=== PATIENT | female | born 1980 | race Caucasian/White ===

== ENCOUNTER 2022-03-23 10:40 | Emergency (ER) | payer BC, SELFPAY ==
[2022-03-23] VITALS (27 sets, daily range): BP systolic 116–136; BP diastolic 58–78; PULSE 88–106; RESP 12–38; TEMP 36.9; O2SAT 92–100; BMI 21.9
--- NOTE | 2022-03-23 14:23 | DI.RAD.S_ITS ---
PROCEDURE: XR CHEST 1V INDICATIONS: chest pain TECHNIQUE: One view of the chest was acquired. COMPARISON: None. FINDINGS: Surgical changes and devices: None. Overlying EKG wires. Lungs and pleura: Lungs are clear. No pleural effusions or pneumothorax. Mediastinum: Mediastinal contours appear normal. Heart size is normal. Bones and chest wall: No suspicious bony lesions. Overlying soft tissues appear unremarkable. IMPRESSION: No evidence of an acute cardiopulmonary abnormality. Dictated by: Melvin Murry D.O. on 03/23/2022 at 13:39 Approved by: Melvin Murry D.O. on 03/23/2022 at 13:40
[2022-03-23 14:31] LABS: Add Manual Diff / Slide Review NO; Basophils Absolute Auto 0 /uL (0-100); Basophils Percent Auto 0.8 % (0-2); Eosinophils Absolute Auto 100 /uL (0-450); Eosinophils Percent Auto 1.9 % (2-4); Hematocrit 36.6 % (36-46); Hemoglobin 12.1 g/dL (12.0-16.0); Lymphocytes Absolute Auto 900 /uL (1100-4500); Lymphocytes Percent Auto 20.4 % (25-40); Mean Corpuscular HGB Conc 33.1 % (30-36); Mean Corpuscular Hemoglobin 27.8 PG (26-34); Monocytes Absolute Auto 500 /uL (0-900); Monocytes Percent Auto 12.4 % (3-14); Neutrophils Absolute Auto 2800 /uL (1500-7000); Neutrophils Percent Auto 64.5 % (50-75); Platelet Count 186 X10^3/uL (150-400); Red Blood Cell Count 4.35 X10^6/uL (4.0-5.2); Red Cell Distribution Width 11.6 % (11.6-14.8); White Blood Cell Count 4.4 X10^3/uL (4.5-11.0)
[2022-03-23 14:48] LABS: Alanine Aminotransferase 25 IU/L (<35); Albumin 3.4 g/dL (3.5-5.0); Albumin Globulin Ratio 1.3 (1.0-2.8); Alkaline Phosphatase 70 U/L (38-126); Aspartate Aminotransferase 27 IU/L (14-36); BUN Creatinine Ratio 20.7 (6-22); Bilirubin Total 0.3 mg/dL (0.2-1.3); Blood Urea Nitrogen 12 mg/dL (7-17); Calcium 7.7 mg/dL (8.4-10.2); Carbon Dioxide 21 mmol/L (22-32); Chloride 111 mmol/L (98-107); Creatine Kinase 44 U/L (30-135); Estimated Glomerular Filt Rate > 60 mL/min (>60); Globulin 2.7 g/dL (1.7-4.1); Glucose 107 mg/dL (70-100); HEMOLYSIS < 15 (0-50); Lipase 82 U/L (23-300); Magnesium 1.5 mg/dL (1.6-2.3); Potassium 3.5 mmol/L (3.4-5.1); Sodium 138 mmol/L (137-145); Total Protein 6.1 g/dL (6.3-8.2)
[2022-03-23 15:00] LABS: Troponin I < 0.012 ng/mL (0.01-0.034)
[2022-03-23 17:02] LABS: Thyroid Stimulating Hormone < 0.015 uIU/mL (0.47-4.68)
--- NOTE | 2022-03-23 17:10 | ED.ARRPALP ---
HPI - Arrhythmia/Palpitations <Leroy Bullock PA-C - Last Filed: 03/23/22 19:40> General Chief Complaint: Arrhythmia/Palpitations Stated Complaint: palpitations Time Seen by Provider: 03/23/22 16:16 Source: patient Mode of arrival: Ambulatory History of Present Illness HPI narrative: Patient is a 41-year-old female who presents to the emergency department for evaluation tachycardia and lightheadedness. Patient explains that she experienced a ?dizzy spell? while in [place] this morning and EMS reported that her heart rate was in the 130s. Patient states that she does have a history of Graves disease and explains that she usually feels that her medication needs to be adjusted when her heart rate becomes elevated. Since arriving to the emergency department patient states that she feels slightly fatigued but notes that her lightheadedness has improved somewhat. She denies any fever, chills, chest pain, cough, shortness of breath, nausea, vomiting, diarrhea, constipation, abdominal pain, dysuria, hematuria, syncope, confusion, diaphoresis, jaw pain, pain in the upper extremities, numbness and tingling in the extremities, or any other concerning symptoms. No further concerns were voiced at this time. Related Data Home Medications Medication Instructions Recorded Confirmed Multivitamins - 0 PO * UK DOSE/FREQUENCY ##0 07/16/08 (-S) Previous Rx's Medication Instructions Recorded propranolol 10 mg tablet 10 mg PO BID #10 tabs 03/23/22 Review of Systems <Leroy Bullock PA-C - Last Filed: 03/23/22 19:40> Constitutional Constitutional: Denies chills, Denies fatigue, Denies fever(s), Denies frequent falls, Denies lethargy and Denies weakness ENT Ears, Nose, Mouth, and Throat: Reports dizziness and Denies neck pain Cardiovascular Cardiovascular: Denies chest pain, Reports rapid heart rate, Denies irregular heart rhythm, Denies lightheadedness, Denies dyspnea, Denies dyspnea on exertion and Denies orthopnea Respiratory Respiratory: Denies dyspnea and Denies dyspnea on exertion Gastrointestinal Gastrointestinal: Denies abdominal pain, Denies change in bowel habits, Denies diarrhea, Denies nausea and Denies vomiting Genitourinary Genitourinary: Denies hematuria, Denies flank pain, Denies urinary incontinence and Denies urinary urgency Musculoskeletal Musculoskeletal: Denies back pain, Denies muscle weakness, Denies neck pain, Denies numbness and Denies tingling Integumentary/Breasts Skin/Breast: Denies pruritus, Denies erythema, Denies rash and Denies wounds Neurologic Neurologic: Reports dizziness, Denies frequent falls, Denies numbness, Denies tingling and Denies weakness Endocrine Endocrine: Denies fatigue Patient History <Leroy Bullock PA-C - Last Filed: 03/23/22 19:40> Social History Smoking Status: Never smoker Smoking Status: Never smoker Substance Use Type: does not use Exam <Leroy Bullock PA-C - Last Filed: 03/23/22 19:40> Narrative Exam Narrative: GENERAL: 41 year old patient appears stated age. Well-developed patient, in no acute distress. HEAD: Atraumatic. Normocephalic. EYES: Pupils equal round and reactive. Extraocular motions intact. No scleral icterus. No injection or drainage. ENT: Nose without bleeding, purulent drainage. Throat without erythema, tonsillar hypertrophy or exudate. Airway patent. NECK: Trachea midline. Non tender CARDIOVASCULAR: Tachycardic but regular rhythm without murmurs, gallops, or rubs. RESPIRATORY: Clear to auscultation. Breath sounds equal bilaterally. No wheezes, rales, or rhonchi. GASTROINTESTINAL: Abdomen soft, non-tender, nondistended. EXTREMITIES: No edema or joint tenderness. BACK: Nontender without deformity or crepitance. No flank tenderness. NEURO: AOx3. SKIN: No rash or erythema of visible areas Initial Vital Signs Initial Vital Signs: Vital Signs Pulse Rate 99 H 03/23/22 10:43 Pulse Oximetry 100 03/23/22 10:43 <Brijesh Lugo MD - Last Filed: 03/23/22 21:11> Initial Vital Signs Initial Vital Signs: Vital Signs Pulse Rate 99 H 03/23/22 10:43 Pulse Oximetry 100 03/23/22 10:43 Course <Leroy Bullock PA-C - Last Filed: 03/23/22 19:40> Orders Ordered: ED Orders 03/23/22 14:23 XR chest 1V Stat EKG-12 Lead Stat 03/23/22 17:26 Trop I [Troponin I] Stat Vital Signs Vital signs: Vital Signs - 8 hr 03/23/22 14:18 03/23/22 13:30 03/23/22 14:00 Pulse Rate 102 H 96 H Pulse Rate [Orthostatic Lying] 93 H Pulse Rate [Orthostatic Sitting] 96 H Pulse Rate [Orthostatic Standing] 105 H Respiratory Rate 25 H 15 Blood Pressure Blood Pressure [Orthostatic Lying] 133/60 Blood Pressure [Orthostatic Sitting] 129/78 Blood Pressure [Orthostatic Standing] 125/72 Pulse Oximetry 100 100 03/23/22 14:16 03/23/22 14:16 03/23/22 14:17 Pulse Rate 102 H Pulse Rate [Orthostatic Lying] Pulse Rate [Orthostatic Sitting] Pulse Rate [Orthostatic Standing] Respiratory Rate Blood Pressure 129/78 125/72 Blood Pressure [Orthostatic Lying] Blood Pressure [Orthostatic Sitting] Blood Pressure [Orthostatic Standing] Pulse Oximetry 100 03/23/22 14:17 03/23/22 14:30 03/23/22 14:56 Pulse Rate 99 H Pulse Rate [Orthostatic Lying] Pulse Rate [Orthostatic Sitting] Pulse Rate [Orthostatic Standing] Respiratory Rate 14 Blood Pressure 136/60 Blood Pressure [Orthostatic Lying] Blood Pressure [Orthostatic Sitting] Blood Pressure [Orthostatic Standing] Pulse Oximetry 100 100 03/23/22 14:56 03/23/22 15:00 03/23/22 15:00 Pulse Rate 95 H 93 H Pulse Rate [Orthostatic Lying] Pulse Rate [Orthostatic Sitting] Pulse Rate [Orthostatic Standing] Respiratory Rate 38 H 24 Blood Pressure 123/58 L Blood Pressure [Orthostatic Lying] Blood Pressure [Orthostatic Sitting] Blood Pressure [Orthostatic Standing] Pulse Oximetry 100 100 03/23/22 15:30 03/23/22 15:30 03/23/22 16:00 Pulse Rate 93 H Pulse Rate [Orthostatic Lying] Pulse Rate [Orthostatic Sitting] Pulse Rate [Orthostatic Standing] Respiratory Rate 25 H Blood Pressure 125/65 117/69 Blood Pressure [Orthostatic Lying] Blood Pressure [Orthostatic Sitting] Blood Pressure [Orthostatic Standing] Pulse Oximetry 100 03/23/22 16:00 03/23/22 16:30 03/23/22 16:30 Pulse Rate 90 92 H Pulse Rate [Orthostatic Lying] Pulse Rate [Orthostatic Sitting] Pulse Rate [Orthostatic Standing] Respiratory Rate 24 21 Blood Pressure 125/58 L Blood Pressure [Orthostatic Lying] Blood Pressure [Orthostatic Sitting] Blood Pressure [Orthostatic Standing] Pulse Oximetry 100 100 03/23/22 17:00 03/23/22 17:00 03/23/22 17:30 Pulse Rate 88 Pulse Rate [Orthostatic Lying] Pulse Rate [Orthostatic Sitting] Pulse Rate [Orthostatic Standing] Respiratory Rate 27 H Blood Pressure 116/63 116/61 Blood Pressure [Orthostatic Lying] Blood Pressure [Orthostatic Sitting] Blood Pressure [Orthostatic Standing] Pulse Oximetry 100 03/23/22 17:30 03/23/22 18:18 03/23/22 18:18 Pulse Rate 94 H 91 H Pulse Rate [Orthostatic Lying] Pulse Rate [Orthostatic Sitting] Pulse Rate [Orthostatic Standing] Respiratory Rate 28 H Blood Pressure 116/63 Blood Pressure [Orthostatic Lying] Blood Pressure [Orthostatic Sitting] Blood Pressure [Orthostatic Standing] Pulse Oximetry 100 100 <Brijesh Lguo MD - Last Filed: 03/23/22 21:11> Orders Ordered: ED Orders 03/23/22 14:23 XR chest 1V Stat EKG-12 Lead Stat 03/23/22 17:26 Trop I [Troponin I] Stat Vital Signs Vital signs: Vital Signs - 8 hr 03/23/22 14:18 03/23/22 13:30 03/23/22 14:00 Pulse Rate 102 H 96 H Pulse Rate [Orthostatic Lying] 93 H Pulse Rate [Orthostatic Sitting] 96 H Pulse Rate [Orthostatic Standing] 105 H Respiratory Rate 25 H 15 Blood Pressure Blood Pressure [Orthostatic Lying] 133/60 Blood Pressure [Orthostatic Sitting] 129/78 Blood Pressure [Orthostatic Standing] 125/72 Pulse Oximetry 100 100 03/23/22 14:16 03/23/22 14:16 03/23/22 14:17 Pulse Rate 102 H Pulse Rate [Orthostatic Lying] Pulse Rate [Orthostatic Sitting] Pulse Rate [Orthostatic Standing] Respiratory Rate Blood Pressure 129/78 125/72 Blood Pressure [Orthostatic Lying] Blood Pressure [Orthostatic Sitting] Blood Pressure [Orthostatic Standing] Pulse Oximetry 100 03/23/22 14:17 03/23/22 14:30 03/23/22 14:56 Pulse Rate 99 H Pulse Rate [Orthostatic Lying] Pulse Rate [Orthostatic Sitting] Pulse Rate [Orthostatic Standing] Respiratory Rate 14 Blood Pressure 136/60 Blood Pressure [Orthostatic Lying] Blood Pressure [Orthostatic Sitting] Blood Pressure [Orthostatic Standing] Pulse Oximetry 100 100 03/23/22 14:56 03/23/22 15:00 03/23/22 15:00 Pulse Rate 95 H 93 H Pulse Rate [Orthostatic Lying] Pulse Rate [Orthostatic Sitting] Pulse Rate [Orthostatic Standing] Respiratory Rate 38 H 24 Blood Pressure 123/58 L Blood Pressure [Orthostatic Lying] Blood Pressure [Orthostatic Sitting] Blood Pressure [Orthostatic Standing] Pulse Oximetry 100 100 03/23/22 15:30 03/23/22 15:30 03/23/22 16:00 Pulse Rate 93 H Pulse Rate [Orthostatic Lying] Pulse Rate [Orthostatic Sitting] Pulse Rate [Orthostatic Standing] Respiratory Rate 25 H Blood Pressure 125/65 117/69 Blood Pressure [Orthostatic Lying] Blood Pressure [Orthostatic Sitting] Blood Pressure [Orthostatic Standing] Pulse Oximetry 100 03/23/22 16:00 03/23/22 16:30 03/23/22 16:30 Pulse Rate 90 92 H Pulse Rate [Orthostatic Lying] Pulse Rate [Orthostatic Sitting] Pulse Rate [Orthostatic Standing] Respiratory Rate 24 21 Blood Pressure 125/58 L Blood Pressure [Orthostatic Lying] Blood Pressure [Orthostatic Sitting] Blood Pressure [Orthostatic Standing] Pulse Oximetry 100 100 03/23/22 17:00 03/23/22 17:00 03/23/22 17:30 Pulse Rate 88 Pulse Rate [Orthostatic Lying] Pulse Rate [Orthostatic Sitting] Pulse Rate [Orthostatic Standing] Respiratory Rate 27 H Blood Pressure 116/63 116/61 Blood Pressure [Orthostatic Lying] Blood Pressure [Orthostatic Sitting] Blood Pressure [Orthostatic Standing] Pulse Oximetry 100 03/23/22 17:30 03/23/22 18:18 03/23/22 18:18 Pulse Rate 94 H 91 H Pulse Rate [Orthostatic Lying] Pulse Rate [Orthostatic Sitting] Pulse Rate [Orthostatic Standing] Respiratory Rate 28 H Blood Pressure 116/63 Blood Pressure [Orthostatic Lying] Blood Pressure [Orthostatic Sitting] Blood Pressure [Orthostatic Standing] Pulse Oximetry 100 100 MDM - Arrhythmia/Palpitations <Leroy Bullock PA-C - Last Filed: 03/23/22 19:40> Lab Data Result diagrams: 03/23/22 10:56 03/23/22 10:56 Labs: Lab Results 03/23/22 03/23/22 03/23/22 Range/Units 10:56 10:56 10:56 WBC 4.4 L (4.5-11.0) X10^3/uL RBC 4.35 (4.0-5.2) X10^6/uL Hgb 12.1 (12.0-16.0) g/dL Hct 36.6 (36-46) % MCV 84.0 (80-100) fL MCH 27.8 (26-34) PG MCHC 33.1 (30-36) % RDW 11.6 (11.6-14.8) % Plt Count 186 (150-400) X10^3/uL Neut % (Auto) 64.5 (50-75) % Lymph % (Auto) 20.4 L (25-40) % Phelps % (Auto) 12.4 (3-14) % Eos % (Auto) 1.9 L (2-4) % Baso % (Auto) 0.8 (0-2) % Neut # (Auto) 2800 (7399-9693) /uL Lymph # (Auto) 900 L (7207-8088) /uL Phelps # (Auto) 500 (0-900) /uL Eos # (Auto) 100 (0-450) /uL Baso # (Auto) 0 (0-100) /uL Sodium 138 (137-145) mmol/L Potassium 3.5 (3.4-5.1) mmol/L Chloride 111 H (98-107) mmol/L Carbon Dioxide 21 L (22-32) mmol/L BUN 12 (7-17) mg/dL Creatinine 0.58 (0.52-1.04) mg/dL Estimated GFR > 60 (>60) mL/min BUN/Creatinine Ratio 20.7 (6-22) Glucose 107 H (70-100) mg/dL Calcium 7.7 L (8.4-10.2) mg/dL Magnesium 1.5 L (1.6-2.3) mg/dL Total Bilirubin 0.3 (0.2-1.3) mg/dL AST 27 (14-36) IU/L ALT 25 (<35) IU/L Alkaline Phosphatase 70 (38-126) U/L Total Creatine Kinase 44 (30-135) U/L CK-MB (CK-2) TNP CK-MB (CK-2) Rel Index TNP Troponin I < 0.012 (0.01-0.034) ng/mL Total Protein 6.1 L (6.3-8.2) g/dL Albumin 3.4 L (3.5-5.0) g/dL Globulin 2.7 (1.7-4.1) g/dL Albumin/Globulin Ratio 1.3 (1.0-2.8) Lipase 82 (23-300) U/L TSH < 0.015 L (0.47-4.68) uIU/mL Free T4 2.41 H (0.78-2.19) ng/dL Free T3 6.63 H (2.77-5.27) pg/mL 03/23/22 Range/Units 17:26 WBC (4.5-11.0) X10^3/uL RBC (4.0-5.2) X10^6/uL Hgb (12.0-16.0) g/dL Hct (36-46) % MCV (80-100) fL MCH (26-34) PG MCHC (30-36) % RDW (11.6-14.8) % Plt Count (150-400) X10^3/uL Neut % (Auto) (50-75) % Lymph % (Auto) (25-40) % Phelps % (Auto) (3-14) % Eos % (Auto) (2-4) % Baso % (Auto) (0-2) % Neut # (Auto) (9281-9419) /uL Lymph # (Auto) (9027-8313) /uL Phelps # (Auto) (0-900) /uL Eos # (Auto) (0-450) /uL Baso # (Auto) (0-100) /uL Sodium (137-145) mmol/L Potassium (3.4-5.1) mmol/L Chloride (98-107) mmol/L Carbon Dioxide (22-32) mmol/L BUN (7-17) mg/dL Creatinine (0.52-1.04) mg/dL Estimated GFR (>60) mL/min BUN/Creatinine Ratio (6-22) Glucose (70-100) mg/dL Calcium (8.4-10.2) mg/dL Magnesium (1.6-2.3) mg/dL Total Bilirubin (0.2-1.3) mg/dL AST (14-36) IU/L ALT (<35) IU/L Alkaline Phosphatase (38-126) U/L Total Creatine Kinase (30-135) U/L CK-MB (CK-2) CK-MB (CK-2) Rel Index Troponin I < 0.012 (0.01-0.034) ng/mL Total Protein (6.3-8.2) g/dL Albumin (3.5-5.0) g/dL Globulin (1.7-4.1) g/dL Albumin/Globulin Ratio (1.0-2.8) Lipase (23-300) U/L TSH (0.47-4.68) uIU/mL Free T4 (0.78-2.19) ng/dL Free T3 (2.77-5.27) pg/mL Imaging Data Chest x-ray: Radiologist's Impresson: PROCEDURE: XR FOOT LT MIN 3V INDICATIONS: Left foot pain, bruising TECHNIQUE: 3 views of the foot were acquired. COMPARISON: None. FINDINGS: Bones: There is diffuse osseous demineralization. There is mild hallux valgus. Mild degenerative changes of the 1st metatarsophalangeal joint. Subtle lucency alone the volar aspect of the base of the 1st proximal phalanx. Soft tissues: No tibiotalar joint effusion. Achilles tendon appears normal. Moderate size plantar fascial insertional enthesophyte. No focal soft tissue swelling. IMPRESSION: Questionable fracture of the volar base of the proximal 1st phalanx. Recommend correlation with point tenderness at this area. Mild hallux valgus and mild degenerative changes of the 1st metatarsophalangeal joint. Dictated by: Melvin Murry D.O. on 03/23/2022 at 15:57 Approved by: Melvin Murry D.O. on 03/23/2022 at 16:01 MDM Narrative Medical decision making narrative: Differential diagnosis to consider but not limited to arrhythmia versus atrial fibrillation versus acute coronary syndrome. I discussed results of lab studies and imaging obtained in the emergency department today with the patient and informed her that her TSH was low with T3 and T4 elevated. Patient was encouraged to increase her PTU dose by 50% my her artificial fly tier and recommended to began propranolol as needed for tachycardia. Agreed to provide the patient with a short course of propanolol and urged to follow up with artificial fly tier and primary care. She expressed understanding and agrees to plan. Strict return precautions were discussed prior to discharge. <Brijesh Lugo MD - Last Filed: 03/23/22 21:11> Lab Data Labs: Lab Results 03/23/22 03/23/22 03/23/22 Range/Units 10:56 10:56 10:56 WBC 4.4 L (4.5-11.0) X10^3/uL RBC 4.35 (4.0-5.2) X10^6/uL Hgb 12.1 (12.0-16.0) g/dL Hct 36.6 (36-46) % MCV 84.0 (80-100) fL MCH 27.8 (26-34) PG MCHC 33.1 (30-36) % RDW 11.6 (11.6-14.8) % Plt Count 186 (150-400) X10^3/uL Neut % (Auto) 64.5 (50-75) % Lymph % (Auto) 20.4 L (25-40) % Phelps % (Auto) 12.4 (3-14) % Eos % (Auto) 1.9 L (2-4) % Baso % (Auto) 0.8 (0-2) % Neut # (Auto) 2800 (1199-1378) /uL Lymph # (Auto) 900 L (9617-0024) /uL Phelps # (Auto) 500 (0-900) /uL Eos # (Auto) 100 (0-450) /uL Baso # (Auto) 0 (0-100) /uL Sodium 138 (137-145) mmol/L Potassium 3.5 (3.4-5.1) mmol/L Chloride 111 H (98-107) mmol/L Carbon Dioxide 21 L (22-32) mmol/L BUN 12 (7-17) mg/dL Creatinine 0.58 (0.52-1.04) mg/dL Estimated GFR > 60 (>60) mL/min BUN/Creatinine Ratio 20.7 (6-22) Glucose 107 H (70-100) mg/dL Calcium 7.7 L (8.4-10.2) mg/dL Magnesium 1.5 L (1.6-2.3) mg/dL Total Bilirubin 0.3 (0.2-1.3) mg/dL AST 27 (14-36) IU/L ALT 25 (<35) IU/L Alkaline Phosphatase 70 (38-126) U/L Total Creatine Kinase 44 (30-135) U/L CK-MB (CK-2) TNP CK-MB (CK-2) Rel Index TNP Troponin I < 0.012 (0.01-0.034) ng/mL Total Protein 6.1 L (6.3-8.2) g/dL Albumin 3.4 L (3.5-5.0) g/dL Globulin 2.7 (1.7-4.1) g/dL Albumin/Globulin Ratio 1.3 (1.0-2.8) Lipase 82 (23-300) U/L TSH < 0.015 L (0.47-4.68) uIU/mL Free T4 2.41 H (0.78-2.19) ng/dL Free T3 6.63 H (2.77-5.27) pg/mL 03/23/ Range/Units 17:26 WBC (4.5-11.0) X10^3/uL RBC (4.0-5.2) X10^6/uL Hgb (12.0-16.0) g/dL Hct (36-46) % MCV (80-100) fL MCH (26-34) PG MCHC (30-36) % RDW (11.6-14.8) % Plt Count (150-400) X10^3/uL Neut % (Auto) (50-75) % Lymph % (Auto) (25-40) % Phelps % (Auto) (3-14) % Eos % (Auto) (2-4) % Baso % (Auto) (0-2) % Neut # (Auto) (7158-5997) /uL Lymph # (Auto) (3917-0118) /uL Phelps # (Auto) (0-900) /uL Eos # (Auto) (0-450) /uL Baso # (Auto) (0-100) /uL Sodium (137-145) mmol/L Potassium (3.4-5.1) mmol/L Chloride (98-107) mmol/L Carbon Dioxide (22-32) mmol/L BUN (7-17) mg/dL Creatinine (0.52-1.04) mg/dL Estimated GFR (>60) mL/min BUN/Creatinine Ratio (6-22) Glucose (70-100) mg/dL Calcium (8.4-10.2) mg/dL Magnesium (1.6-2.3) mg/dL Total Bilirubin (0.2-1.3) mg/dL AST (14-36) IU/L ALT (<35) IU/L Alkaline Phosphatase (38-126) U/L Total Creatine Kinase (30-135) U/L CK-MB (CK-2) CK-MB (CK-2) Rel Index Troponin I < 0.012 (0.01-0.034) ng/mL Total Protein (6.3-8.2) g/dL Albumin (3.5-5.0) g/dL Globulin (1.7-4.1) g/dL Albumin/Globulin Ratio (1.0-2.8) Lipase (23-300) U/L TSH (0.47-4.68) uIU/mL Free T4 (0.78-2.19) ng/dL Free T3 (2.77-5.27) pg/mL Discharge Plan Departure Patient Disposition: Home Clinical Impression: Graves disease, Sinus tachycardia Instructions: DI for Graves Disease Activity Restrictions/Additional Instructions: *You have been diagnosed with Graves disease, sinus tachycardia *What to do: *Please continue to take your regular medications as directed. [X] New medication prescriptions sent to your pharmacy: [Propranolol] [ ] New medication written as a paper prescription [ ] No new medications given You were evaluated in the emergency department today for lightheadedness and elevated heart rate. It does appear that a your TSH is low with T3 and T4 both elevated. I recommend that you follow your artificial fly tier recommendations to increase your PTU dose by 50%. I have prescribed you a short course of propanolol to help alleviate increased heart rate. Please only take this medication as needed and take only wanted time initially to see how controlled her symptoms. I recommend following up with the primary care provider within the next few days for further evaluation and management. Do not hesitate to return to the emergency department if you experience further increased heart rate, worsening dizziness or lightheadedness, or any other concerning symptoms. *Please follow up with your primary care provider in 2-3 days, call for an appointment. Let them know you were seen in the Emergency Department and that we ask that you be seen in follow up. We will electronically transmit a record of today's note if your PCP is in our system *If you do not have a primary care provider please contact the [facility] Resource line at [phone]. They will ask some questions about your medical history and help get you set up with a doctor in the community. *Return to Emergency Department if you should have any new, worsening or concerning symptoms, such as fever greater than 101 F, shaking chills, worsening pain, persistent vomiting or other bothersome symptoms. Prescriptions: New propranolol 10 mg tablet 10 mg PO BID Qty: 10 0RF No Action Multivitamins - (-S) 0 PO * UK DOSE/FREQUENCY Qty: 0 Visit Report Forms: Patient Portal/API <Brijesh Lugo MD - Last Filed: 03/23/22 21:11> Cosign ED Attending Jessicaature Attestation: I was immediately available for consultation of this patient was seen and evaluated by the APC in the department.
[2022-03-23 17:12] LABS: Free T3, Triiodothyronine Free 6.63 pg/mL (2.77-5.27); Free T4, Direct Thyroxine 2.41 ng/dL (0.78-2.19)
[2022-03-23 17:57] LABS: Troponin I < 0.012 ng/mL (0.01-0.034)
== END 2022-03-23 18:30 | disposition home or self-care (01) ==
PROVIDERS: Family Medicine Addiction Medicine; Emergency Provider Physician Assistant; Family Provider Obstetrics & Gynecology
DX: E05.00 Thyrotoxicosis with diffuse goiter without thyrotoxic crisis or storm (principal); R00.0 Tachycardia, unspecified; R42 Dizziness and giddiness
CPT/HCPCS: 71045; 80053; 82550; 83690; 83735; 84439; 84443; 84481; 84484; 85025; 93005; 99283; 99284